=== PATIENT | female | born 1995 | race African-American/Black ===

== ENCOUNTER 2021-08-04 14:58 | Emergency (ER) | payer OTHER ==
[~2021-08-04] VITALS: Ht 165.1 cm; Wt 87.1 kg
[2021-08-04 16:00] VITALS: BP 128/80
[2021-08-04] MEDS ORDERED: IBUP800T27 PO (16:14)
== END 2021-08-04 16:22 | disposition home or self-care (01) ==
LOC: ER 14:58
DX: S20.219A Contusion of unspecified front wall of thorax, initial encounter (principal); S80.02XA Contusion of left knee, initial encounter; R10.2 Pelvic and perineal pain; Z79.1 Long term (current) use of non-steroidal anti-inflammatories (NSAID); V49.9XXA Car occupant (driver) (passenger) injured in unspecified traffic accident, initial encounter; Y93.89 Activity, other specified; Y92.410 Unspecified street and highway as the place of occurrence of the external cause; Y99.8 Other external cause status
CPT/HCPCS: 71045; 73560